=== PATIENT | female | born 1970 | race Caucasian/White ===

== ENCOUNTER → 2018-02-27 | Outpatient (CLI) | payer BC ==
--- NOTE | 2018-03-01 09:00 | MM ---
Reason for exam: screening (asymptomatic). Last mammogram was performed 4 years and 2 months ago. History: Reductions of both breasts, 2000. Took hormonal contraceptives for 13 years. Physical Findings: A clinical breast exam by your physician is recommended on an annual basis and results should be correlated with mammographic findings. MG 3D Screening Mammo W/Cad Bilateral CC and MLO view(s) were taken. Prior study comparison: January 02, 2014, bilateral digital screening mammo w/CAD. July 01, 2011, CAD bilateral diagnostic mammogram. The breast tissue is heterogeneously dense. This may lower the sensitivity of mammography. Some regional punctate calcifications in the right breast are increased but typically benign. Calcifications anterior upper outer left breast increased and can be further evaluated with magnification views. ASSESSMENT: Incomplete: need additional imaging evaluation, BI-RAD 0 RECOMMENDATION: Special view mammogram of the left breast. [facility] will attempt to contact patient to return for supplemental views. FREDA
== END ==
LOC: RADMAMWWP 15:18
PROVIDERS: ATTEND Obstetrics & Gynecology
DX: Z12.31 Encounter for screening mammogram for malignant neoplasm of breast (principal)
CPT/HCPCS: 77063; 77067

== ENCOUNTER → 2018-03-09 | Outpatient (CLI) | payer BC ==
--- NOTE | 2018-03-10 08:11 | MM ---
Reason for exam: additional evaluation requested from abnormal screening. Last mammogram was performed less than 1 month ago. History: Reductions of both breasts, 2000. Took hormonal contraceptives for 13 years. Physical Findings: Nurse did not find any significant physical abnormalities on exam. MG 3D Work Up W/Cad LT CC with magnification, ML with magnification, and ML view(s) were taken of the left breast. Prior study comparison: February 27, 2018, bilateral MG 3d screening mammo w/cad. January 02, 2014, bilateral digital screening mammo w/CAD. The breast tissue is heterogeneously dense. This may lower the sensitivity of mammography. Finding: There are typically benign punctate, diffuse/scattered, regional calcifications in the left breast. No suspicious clusters. No significant changes in finding since January 02, 2014. These results were verbally communicated with the patient and result sheet given to the patient on 03/09/18. ASSESSMENT: Benign, BI-RAD 2 RECOMMENDATION: Return to routine screening mammogram schedule for both breasts.
== END | disposition home or self-care (01) ==
LOC: RADMAMWWP 15:37
PROVIDERS: ATTEND Obstetrics & Gynecology
DX: R92.8 Other abnormal and inconclusive findings on diagnostic imaging of breast (principal)
CPT/HCPCS: 77061; 77065

== ENCOUNTER → 2018-09-27 | Outpatient (CLI) | payer BC | END | disposition home or self-care (01) | LOC: LABWHC1 15:37 | PROVIDERS: ATTEND Internal Medicine Infectious Disease | DX: M06.9 Rheumatoid arthritis, unspecified (principal) | CPT/HCPCS: 36415; 86480 ==

== ENCOUNTER → 2019-06-13 | Outpatient (CLI) | payer BC ==
--- NOTE | 2019-06-14 13:48 | MM ---
Reason for exam: screening (asymptomatic). Last mammogram was performed 1 year and 3 months ago. History: Reductions of both breasts, 2000. Took hormonal contraceptives for 13 years. Physical Findings: A clinical breast exam by your physician is recommended on an annual basis and results should be correlated with mammographic findings. MG 3D Screening Mammo W/Cad Bilateral CC and MLO view(s) were taken. Prior study comparison: March 09, 2018, left breast MG 3d work up w/cad LT. February 27, 2018, bilateral MG 3d screening mammo w/cad. The breast tissue is heterogeneously dense. This may lower the sensitivity of mammography. There is an 8mm right upper outer quadrant mass containing calcifications located 3-4cm from nipple. Partially obscured rounded left upper asymmetry with calcifications at far posterior depth over the pectoralis. ASSESSMENT: Incomplete: need additional imaging evaluation, BI-RAD 0 RECOMMENDATION: Special view mammogram of the left breast. Ultrasound of the right breast. [facility] will attempt to contact patient to return for supplemental views and ultrasound.
== END | disposition home or self-care (01) ==
LOC: RADMAMWWP 13:13
PROVIDERS: ATTEND Obstetrics & Gynecology
DX: Z12.31 Encounter for screening mammogram for malignant neoplasm of breast (principal)
CPT/HCPCS: 77063; 77067

== ENCOUNTER → 2019-06-28 | Outpatient (CLI) | payer BC ==
--- NOTE | 2019-06-29 08:42 | MM ---
Reason for exam: additional evaluation requested from abnormal screening. Last mammogram was performed less than 1 month ago. History: Reductions of both breasts, 2000. Took hormonal contraceptives for 13 years. Physical Findings: Nurse did not find any significant physical abnormalities on exam. MG Work Up Mamm w CAD LT XCCL, ML, and spot compression MLO view(s) were taken of the left breast. Prior study comparison: June 13, 2019, bilateral MG 3d screening mammo w/cad. March 09, 2018, left breast MG 3d work up w/cad LT. The breast tissue is heterogeneously dense. This may lower the sensitivity of mammography. Left focal asymmetry of upper outer quadrant at posterior depth persists, this appears similar to 2014 as do the calcifications, precautionary ultrasound. These results were verbally communicated with the patient and result sheet given to the patient on 06/28/19. ASSESSMENT: Incomplete: need additional imaging evaluation, BI-RAD 0 RECOMMENDATION: Ultrasound of the left breast. (upper outer quadrant)
--- NOTE | 2019-07-03 13:28 | USB ---
Reason for exam: additional evaluation requested from abnormal screening. History: Reductions of both breasts, 1999. Took hormonal contraceptives for 13 years. US Breast Limited RT Right limited breast ultrasound including focal area of concern, retroareolar and axilla demonstrates a 0.7 x 0.5 x 0.7cm mixed lesion at 9 o'clock, 4cm from nipple, peripheral vascular flow, solid, biopsy recommended and a 0.5 x 0.3 x 0.4cm mixed lesion at 10 o'clock. Left limited breast ultrasound including focal area of concern, retroareolar and axilla demonstrates a 0.7 x 0.3 x 0.6cm mixed lesion at 12 o'clock, a 0.5 x 0.6 x 0.3cm mixed lesion at 1 o'clock possibly cystic and complicated, biopsy recommended post pathology results and a 0.3 x 0.2 x 0.3cm mixed lesion too small to characterize at 5 o'clock, solid shadowing, biopsy recommended, assess correlation with mammographic findings after biopsy. These results were verbally communicated with the patient on 07/03/19. ASSESSMENT: Suspicious, BI-RAD 4 RECOMMENDATION: Ultrasound core biopsy of both breasts. Called Dr. May with mammographic findings and has scheduled an appointment for the patient for 07/06/19 at 2:[address] Sampson. Biopsy scheduled for 07/12/19 at 12:20. PRELIMINARY REPORT CALLED AND FAXED TO DR. SAMPSON ON 07/03/19.
== END | disposition home or self-care (01) ==
LOC: RADMAMWWP 14:53
PROVIDERS: ATTEND Obstetrics & Gynecology
DX: R92.8 Other abnormal and inconclusive findings on diagnostic imaging of breast (principal)
CPT/HCPCS: 77065

== ENCOUNTER → 2019-07-06 | Outpatient (CLI) | payer BC ==
[2019-07-06 14:42] VITALS: BP 184/111; PULSE 89; RESP 18; TEMP 98.1; BMI 28.2
--- NOTE | 2019-07-06 15:05 | P.GSHP ---
History of Present Illness H&P Date: 07/06/19 Chief Complaint: abnormal mammogram and ultrasound Mary Ann is a 49-year-old white female who had [place] [id number]. This was a bilateral 3-D mammogram after which it was recommended that she undergo a special view of the left breast and ultrasound of the right breast. The special view of the left breast was performed on 06/28/2019. This revealed left focal asymmetry in the upper outer quadrant which appeared similar to 2014. Precautionary ultrasound was recommended. Ultrasound was done of both breasts. In the right breast there is a 0.7 x 0.7 cm mixed lesion at 9:00 and a 0.5 x 0.4 mixed lesion at 10:00 in the left breast was a 0.7 mixed lesion at 12:00 and a 0.5 mixed lesion at 1:00 and a 0.3 cm mixed lesion too small to characterize at 5:00 the recommendation was ultrasound core biopsy of both breasts. Patient is status post bilateral reduction mammoplasty. The patient does not drink caffeinated beverages. She smoked but stopped 2 years ago and then beginning Vaping. However approximately 6 months ago she went to no nicotine. She eats chocolate once or twice a week. Family History: mother: thyroid cancer father: thyroid cancer Hormonal History: menarche: 13 , 1 micarrage, breast fed:no, first at 20 periods: ablation done BCP: 10 years hormones: none Surgical history: 1.thyroid resection entire 2. breast reduction 3. nose 4. 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 HTN 3. Rheumatoid Arthritis takes orencia Social History: smoke: none stopped 2 years ago, smoked 1pack/2 days, 30 years alcohol: occasional drugs: none - Constitutional Constitutional: Denies chills, Denies fever - EENT Eyes: denies blurred vision, denies pain Ears: deny: decreased hearing, tinnitus Ears, nose, mouth and throat: Denies headache, Denies sore throat - Breasts Breasts: bilateral: as per HPI - Cardiovascular Cardiovascular: Reports high blood pressure - Respiratory Respiratory: Denies cough, Denies 7 - Gastrointestinal Comment: IBS Gastrointestinal: Reports diarrhea, Denies abdominal pain, Denies nausea, Denies vomiting - Genitourinary (Female) Genitourinary: Denies dysuria, Denies hematuria - Menstruation Menstruation: Reports period light - Musculoskeletal Comment: arthritis - Integumentary Integumentary: Denies pruritus, Denies rash - Neurological Neurological: Denies numbness, Denies weakness - Psychiatric Psychiatric: Reports anxiety, Reports depression - Endocrine Endocrine: Denies fatigue, Denies weight change - Hematologic/Lymphatic Comment: Factor V and factor II abnormality - Allergic/Immunologic Allergic/Immunologic: Reports seasonal allergies Past Medical History Past Medical History: Blood Disorder, Hypertension, Rheumatoid Arthritis (RA), Thyroid Disorder Additional Past Medical History / Comment(s): IBS, 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 Sinus infection. History of Any Multi-Drug Resistant Organisms: None Reported Past Surgical History: Breast Surgery, Orthopedic Surgery Additional Past Surgical History / Comment(s): nasal surgery, cervical surgery- LEEP X 2, cone bx Past Anesthesia/Blood Transfusion Reactions: Previous Problems w/ Anesthesia Additional Past Anesthesia/Blood Transfusion Reaction / Comment(s): after nasal surgery had high BP post op and severe pain- may have had bleeding problem post op but not sure. anesthesia record from nasal surgery done 06/11/2012 added to chart Past Psychological History: Anxiety Smoking Status: Never smoker Past Alcohol Use History: Occasional Past Drug Use History: None Reported - Past Family History Mother Family Medical History: Cancer Father Family Medical History: Cancer Brother(s) Family Medical History: Myocardial Infarction ([place]) Medications and Allergies Home Medications Medication Instructions Recorded Confirmed Type ALPRAZolam [Xanax] 0.25 mg PO DAILY PRN 03/20/14 07/06/19 History Abatacept [Orencia] 0 mg IV Q30D 03/20/14 07/06/19 History Lisinopril [Zestril] 10 mg PO BID 03/20/14 07/06/19 History amLODIPine BESYLATE [Norvasc] 5 mg PO 1600,2200 03/20/14 07/06/19 History diphenhydrAMINE [Benadryl] 25 mg PO HS 03/20/14 07/06/19 History Levothyroxine Sodium [Synthroid] 100 mcg PO DAILY 12/22/15 07/06/19 History traZODone HCL 50 mg PO HS 07/19/17 07/06/19 History Calcium Carbonate/Vitamin D3 1 tab PO DAILY 07/06/19 07/06/19 History [Calcium 500-Vit D3 600 Tablet] Docusate [Colace] 100 mg PO DAILY 07/06/19 07/06/19 History Fluticasone Propionate [Flonase 1 spray EA NOSTRIL DAILY PRN 07/06/19 07/06/19 History Allergy Relief] Loperamide [Imodium] 2 mg PO DAILY PRN 07/06/19 07/06/19 History sulfaSALAzine [Azulfidine] 500 mg PO BID 07/06/19 07/06/19 History Allergies Allergy/AdvReac Type Severity Reaction Status Date / Time hydralazine [Hydralazine] Allergy Severe Rapid Verified 07/06/19 14:31 Heart Rate Surgical - Exam Vital Signs Temp Pulse Resp BP Pulse Ox 98.1 F 89 18 184/111 100 07/06/19 14:38 07/06/19 14:38 07/06/19 14:38 07/06/19 14:38 07/06/19 14:38 BMI 28.2 - General well developed, well nourished, no distress - Eyes normal ocular movement - ENT no hearing loss, no congestion - Neck no masses, trachea midline - Respiratory normal respiratory effort - Cardiovascular Rhythm: regular Heart Sounds: normal: S1, S2 - Abdomen Abdomen: soft, non tender, no guarding, no rigid, no rebound - Integumentary normal turgor - Neurologic no disoriented, no combative - Musculoskeletal normal gait, normal posture - Psychiatric oriented to time, oriented to person, oriented to place, speech is normal, memory intact Breast exam: Right breast: Scar from breast reduction, multiple positional exam no dominant masses or nodules of concern, fibrocystic change Right axilla: No adenopathy of concern Left breast: Scars from breast reduction, multiple positional exam no dominant masses or nodules of concern, fibrocystic changes Left axilla: No adenopathy of concern Results Mammogram and ultrasound reports reviewed Assessment and Plan Assessment: Impression: 1. Abnormal mammogram and ultrasound of the breast, bilateral breast ultrasound core biopsy recommended 2. Fibrocystic breast changes 3. Family history of thyroid cancer 4. Factor II and factor V abnormality 6. Irritable bowel syndrome 7. Hypertension 8. Rheumatoid arthritis 9. Former smoker Plan: 1. Bilateral ultrasound-guided core biopsy 2. Follow-up after biopsy 3. Medical management medical conditions Cc: Dr. May, Dr. Antonio
== END ==
LOC: WWCWWP 13:55
PROVIDERS: ATTEND Surgery
DX: Z53.9 Procedure and treatment not carried out, unspecified reason (principal)

== ENCOUNTER → 2019-07-12 | Day surgery (SDC) | payer BC ==
[2019-07-12 11:39] VITALS: RESP 16; BMI 28.2
[2019-07-12 13:39] VITALS: BP 149/65; PULSE 69; TEMP 98.1
--- NOTE | 2019-07-12 14:56 | USB ---
EXAMINATION TYPE: US biopsy breast VAD RT, US biopsy breast VAD LT, MG diagnostic mammo BI wo CAD DATE OF EXAM: 07/12/2019 CLINICAL HISTORY: R92.Abnormal ultrasoundAbnormal Mammogram. TECHNIQUE: Ultrasound guided core biopsy of bilateral breast with clip placement and follow-up diagnostic bilateral breast mammogram. COMPARISON: Prior bilateral breast ultrasound June 28, 2019 FINDINGS: The procedure of ultrasound guided core biopsy was explained to the patient. Benefits, alternatives, and risks were discussed. An informed consent was then obtained. The patient was placed in supine positioning for imaging and for the procedure. Preprocedure ultrasound redemonstrates 7 mm lobulated hypoechoic lesion 9:00 position Zone-A right breast and tiny 2 to 3 mm hypoechoic vascular lesion 5:00 position zone C deep in the left breast. Left breast lesion is first performed. The overlying skin was prepped and draped in usual sterile fashion. Lidocaine was used as anesthetic into the skin and subcutaneous tissue. Lidocaine with epinephrine is used as anesthetic into the deeper tissue in the bilateral breasts. Under ultrasound guidance, a vacuum assisted biopsy gun device was used to obtain 3 core samples on the left and 4 core samples on the right. Following this, a biopsy clip was left in each lesion. The patient tolerated the procedure well without any immediate complication. The patient was kept in the radiology department for short stay after the procedure and then discharged home in stable condition. Post procedure mammogram shows successful deployment of right breast clip. Left breast clip not clearly identified felt to be due to marked posterior or deep location. Right breast clip satisfactory relative to the area of concern on original mammogram IMPRESSION: Successful, uncomplicated ultrasound guided core biopsy of area of concern in the bilateral breasts, full pathology results to follow. Low index of suspicion noted in the left breast. Intermediate index of suspicion noted in the right breast. Pathology Results: Benign A. LEFT BREAST, FIVE O'CLOCK, ULTRASOUND GUIDED CORE BIOPSY: Benign breast tissue with prominent adipose tissue and focal scar/fibrosis with histiocytes. Cannot exclude lipoma. B. RIGHT BREAST, NINE O'CLOCK, ULTRASOUND GUIDED CORE BIOPSY: Fibroadenoma and background fibrocystic changes. Recommendation Follow up mammogram of both breasts in 6 months. FREDA
== END ==
LOC: RADUSWWP 11:15
PROVIDERS: ATTEND Surgery
DX: D24.1 Benign neoplasm of right breast (principal); N60.32 Fibrosclerosis of left breast
CPT/HCPCS: 19083; 19084; 88305; 77066; A4648; J2001

== ENCOUNTER → 2019-07-20 | Outpatient (CLI) | payer BC ==
[2019-07-20 15:31] VITALS: BP 182/95; PULSE 93; RESP 18; TEMP 97.8; BMI 28.2
--- NOTE | 2019-07-20 15:48 | P.PN ---
Subjective Progress Note Date: 07/20/19 Principal diagnosis: Niecy is a 49-year-old white female status post ultrasound-guided core biopsy of both breast on . Left breast revealed benign breast tissue with prominent adipose tissue and focal scar/fibrosis. Right breast core biopsy revealed fibroadenoma and background fibrocystic changes. The patient is doing well status post procedure and both are concordant with the radiographic concerns. The patient does not have any complaints related to the procedure. Objective - Vital Signs Vital signs: Vital Signs Temp 97.8 F 07/20/19 15:28 Pulse 93 07/20/19 15:28 Resp 18 07/20/19 15:28 BP 182/95 07/20/19 15:28 Pulse Ox 98 07/20/19 15:28 Intake & Output 07/19/19 07/20/19 07/20/19 18:59 06:59 18:59 Weight 79.379 kg - Exam BMI 28.2 - Constitutional General appearance: Present: average body habitus - EENT Eyes: Present: EOMI ENT: Present: hearing grossly normal - Neck Neck: Present: normal ROM - Respiratory Respiratory: bilateral: CTA - Cardiovascular Rhythm: regular Heart sounds: normal: S1, S2 - Integumentary Integumentary Comment(s): echymosis bilateral breast at biopsy site no evidence of any infection - Musculoskeletal Musculoskeletal: Present: gait normal, strength equal bilaterally - Psychiatric Psychiatric: Present: A&O x's 3, appropriate affect, intact judgment & insight Assessment and Plan Assessment: Impression: 1. Patient is status post bilateral ultrasound core biopsy 2. Left breast core biopsy benign breast tissue, scar, fibrosis 3. Right ultrasound-guided core biopsy fibroadenoma Results of biopsy discussed with the patient and her . They understand that she will have repeat mammogram and ultrasound of both breasts in 6 months time. If she has any questions or concerns and we'll see her sooner. Cc: Dr. Harley, Dr. May
== END | disposition home or self-care (01) ==
LOC: WWCWWP 15:07
PROVIDERS: ATTEND Surgery
DX: Z53.9 Procedure and treatment not carried out, unspecified reason (principal)

== ENCOUNTER → 2020-01-14 | Outpatient (CLI) | payer BC | END | disposition home or self-care (01) | DX: R92.8 Other abnormal and inconclusive findings on diagnostic imaging of breast (principal) | CPT/HCPCS: 77066 ==

== ENCOUNTER → 2021-03-18 | Outpatient (CLI) | payer BC ==
--- NOTE | 2021-03-18 12:41 | CT ---
EXAMINATION TYPE: CT lumbar spine wo con DATE OF EXAM: 03/18/2021 COMPARISON: None HISTORY: 50-year-old female Lumbago TECHNIQUE: Contiguous axial scanning of the lumbar spine without IV contrast. Coronal and sagittal re constructions performed. CT DLP: 1024 mGycm Automated exposure control for dose reduction was used. FINDINGS: Kidneys show extra renal pelves on both sides. Vertebral body heights are preserved and alignment is maintained. Mild disc bulging lower lumbar spine. Facet arthropathy lower lumbar spine, right greater than left. No large focal disc herniation or significant spinal canal stenosis. On the left, changes result in moderate neural foraminal narrowing at L5-S1 and mild at L4-L5. On the right, changes result in mild to moderate neural foraminal narrowing at L5-S1 and mild at L4-L 5. IMPRESSION: 1. MILD DEGENERATIVE DISC DISEASE MID TO LOWER LUMBAR SPINE. NO LARGE FOCAL DISC HERNIATION OR SPINAL CANAL STENOSIS. 2. FACET ARTHROPATHY LOWER LUMBAR SPINE, RIGHT GREATER THAN LEFT. 3. CHANGES RESULT IN MODERATE LEFT NEURAL FORAMINAL STENOSIS AT L5-S1 AND MILD TO MODERATE ON THE RIG HT.
--- NOTE | 2021-03-19 11:09 | NM ---
EXAMINATION TYPE: NM bone scan whole body DATE OF EXAM: 03/18/2021 COMPARISON: NONE HISTORY: M54.4 lumbago, M54.5 low back pain, M48.062 Delayed whole-body scanning was performed following the injection of 23.6 mCi Tc 99m MDP. Images acq uired 4.5 hours post injection. FINDINGS: Degenerative uptake about the shoulders, sternoclavicular joints, thoracic and lumbar spines as well as the wrists, hands right knee, bilateral ankles and mid feet and great toes. No intense uptake to s uggest metastatic disease fracture. IMPRESSION: Degenerative uptake as noted.
== END | disposition home or self-care (01) ==
LOC: RADCTMAIN 10:57
PROVIDERS: ATTEND Neurological Surgery
DX: M51.36 Other intervertebral disc degeneration, lumbar region (principal); M47.816 Spondylosis without myelopathy or radiculopathy, lumbar region; M99.73 Connective tissue and disc stenosis of intervertebral foramina of lumbar region
CPT/HCPCS: 72131; 78306; A9503

== ENCOUNTER → 2021-04-07 | Outpatient (CLI) | payer BC ==
--- NOTE | 2021-04-07 16:01 | BD ---
EXAMINATION TYPE: Axial Bone Density DATE OF EXAM: 04/07/2021 COMPARISON: NONE CLINICAL HISTORY: Height: 5 FT 5 1/2 IN Weight: 177 FRAX RISK QUESTIONS: Alcohol (3 or more units per day): NO Family History (Parent hip fracture): NO Glucocorticoids (More than 3mos): ON AND OFF SINCE DEC (Ex: prednisone, prednisolone, methylprednisolone, dexamethasone, and hydrocortisone). History of Fracture in Adulthood: YES Secondary Osteoporosis: 1. Type 1 Diabetes: NO 2. Hyperthyroidism: REMOVED 3. Menopause before 45: NO 4. Malnutrition: NO 5. Chronic liver disease: NO Rheumatoid Arthritis: YES Current Tobacco Use: NO RISK FACTORS HISTORY OF: Surgery to Spine/Hip(right/left)/Wrist (right/left): NO Family History of Osteoporosis: NO Active: YES Diet low in dairy products/other sources of calcium: NO Postmenopausal woman: [employer] AGE 44 NO SYMPTOMS Take estrogen and/or progesterone medications: NO Lost more than 2 inches in height since high school: NO MEDICATIONS: Prednisone or other steroids: ON AND SINCE DEC 2020 Thyroid Medications:YES Which medication: LEVOTHYROXINE How Long: APPROX 10 YEARS Additional Medications: LEVOTHYROXINE, RHEUMATOID MEDS, ORENCIA, LISINOPRIL, NORVASC, TRAZODONE, BENE DRYL, XANAX, Additional History: EXAM MEASUREMENTS: Bone mineral densitometry was performed using the [employer] System. Bone mineral density as measured about the Lumbar spine is: ----- L1-L4(G/cm2): 1.356 T Score Values are as follows: ----- L2: 1.6 ----- L3: 1.3 ----- L4: 1.3 ----- L1-L4: 1.5 BASELINE Bone mineral density about the R hip (g/cm2): 0.862 Bone mineral density about the L hip (g/cm2): 0.864 T Score values are as follows: -----R Neck: -1.3 -----L Neck: -1.3 -----R Total: -0.3 -----L Total: -0.2 BASELINE IMPRESSION: Osteopenia (T Score between -2.5 and -1). There is slightly increased risk of fracture and the patient may be considered for treatment. Re-Screen 2-5 years. NOTE: T-SCORE=SD OF THE YOUNG ADULT MEAN.
== END | disposition home or self-care (01) ==
LOC: RADBDWWP 11:16
PROVIDERS: ATTEND Neurological Surgery
DX: Z13.820 Encounter for screening for osteoporosis (principal); M85.89 Other specified disorders of bone density and structure, multiple sites
CPT/HCPCS: 77080

== ENCOUNTER → 2021-07-28 | Outpatient (CLI) | payer BC ==
--- NOTE | 2021-07-28 11:12 | XR ---
EXAMINATION TYPE: XR chest 2V DATE OF EXAM: 07/28/2021 COMPARISON: NONE HISTORY: Chest pain TECHNIQUE: Frontal and lateral views of the chest are obtained. FINDINGS: There is no focal air space opacity. No evidence for pneumothorax. No pleural effusion. The cardiac silhouette size is within normal limits. The osseous structures are grossly intact. IMPRESSION: 1. No acute cardiopulmonary process.
[2021-07-28 11:17] LABS: INR 0.9 (<1.2); Partial Thromboplastin Time 24.1 sec (22.0-30.0); Prothrombin Time 10.2 sec (9.0-12.0)
[2021-07-28 16:37] LABS: Basophils # (A) 0.02 X 10*3/uL (0.00-0.10); Basophils % (A) 0.4 %; Eosinophils # (A) 0.02 X 10*3/uL (0.04-0.35); Eosinophils % (A) 0.4 %; HCT 40.6 % (37.2-46.3); HGB 13.6 g/dL (12.0-15.0); Lymphocytes # (A) 2.25 X 10*3/uL (0.90-5.00); Lymphocytes % (A) 39.5 %; MCH 31.4 pg (27.0-32.0); MCHC 33.5 g/dL (32.0-37.0); MCV 93.8 fL (80.0-97.0); Mean Platelet Volume 9.8 fL (9.5-12.2); Monocytes # (A) 0.33 X 10*3/uL (0.20-1.00); Monocytes % (A) 5.8 %; Neutrophils # (A) 3.07 X 10*3/uL (1.80-7.70); Neutrophils % (A) 53.7 %; Platelet Count 238 X 10*3/uL (140-440); RBC 4.33 X 10*6/uL (4.10-5.20); RDW 11.9 % (11.5-14.5)
[2021-07-29 20:21] LABS: African American GFR (CKD) 97.1 (60.0-200.0); Albumin 4.9 g/dL (3.8-4.9); Albumin/Globulin Ratio 2.13 (1.60-3.17); BUN/Creat Ratio 16.4 Ratio (12.00-20.00); Blood Urea Nitrogen 13.4 mg/dL (9.0-27.0); Calcium 9.6 mg/dL (8.7-10.3); Globulin 2.3 g/dL (1.6-3.3); Non-African American GFR(CKD) 83.8 (60.0-200.0); Potassium 3.7 mmol/L (3.5-5.5); Total Bilirubin 0.3 mg/dL (0.30-1.20); Total Protein 7.2 g/dL (6.2-8.2)
== END | disposition home or self-care (01) ==
LOC: LABWHC1 08:12
PROVIDERS: ATTEND Neurological Surgery
DX: M54.5 Low back pain (principal); R07.9 Chest pain, unspecified; R94.7 Abnormal results of other endocrine function studies
CPT/HCPCS: 36415; 71046; 80053; 85025; 85610; 85730; 86850; 86900; 86901; 87070; 87086; 93005

== ENCOUNTER → 2021-08-17 | Outpatient (CLI) | payer BC | END | disposition home or self-care (01) | LOC: LABWHC1 10:48 | PROVIDERS: ATTEND Neurological Surgery | DX: Z20.822 Contact with and (suspected) exposure to COVID-19 (principal); M54.50 Low back pain, unspecified | CPT/HCPCS: U0003; U0005 ==

== ENCOUNTER → 2021-08-21 | Outpatient (CLI) | payer BC ==
[2021-08-21 10:38] LABS: Appearance,Urine Clear (Clear); Bacteria,Urine Occasional /hpf; Bilirubin,Urine Negative (Negative); Blood,Urine Trace (Negative); Color,Urine Yellow; Glucose,Urine (UA) Negative (Negative); Ketones,Urine Negative (Negative); Leukocyte Esterase,Urine Negative (Negative); Mucus,Urine Rare /hpf; Nitrite,Urine Negative (Negative); Protein,Urine Negative (Negative); RBC,Urine 2 /hpf (0-5); Specific Gravity,Urine 1.013 (1.001-1.035); Squamous Epithelial Cell,Urine <1 /hpf (0-4); Urobilinogen,Urine <2.0 mg/dL (<2.0); WBC,Urine 1 /hpf (0-5)
[2021-08-21 10:43] LABS: Partial Thromboplastin Time 24.2 sec (22.0-30.0); Prothrombin Time 10.3 sec (9.0-12.0)
[2021-08-21 16:20] LABS: Basophils # (A) 0.01 X 10*3/uL (0.00-0.10); Basophils % (A) 0.2 %; Eosinophils # (A) 0.03 X 10*3/uL (0.04-0.35); Eosinophils % (A) 0.6 %; HCT 40.4 % (37.2-46.3); HGB 13.6 g/dL (12.0-15.0); Lymphocytes # (A) 1.64 X 10*3/uL (0.90-5.00); MCHC 33.7 g/dL (32.0-37.0); MCV 95.1 fL (80.0-97.0); Mean Platelet Volume 9.7 fL (9.5-12.2); Monocytes # (A) 0.28 X 10*3/uL (0.20-1.00); Monocytes % (A) 5.5 %; Neutrophils # (A) 3.16 X 10*3/uL (1.80-7.70); Neutrophils % (A) 61.5 %; Platelet Count 217 X 10*3/uL (140-440); RBC 4.25 X 10*6/uL (4.10-5.20); RDW 11.7 % (11.5-14.5); WBC 5.13 X 10*3/uL (4.50-10.00)
[2021-08-21 17:40] LABS: African American GFR (CKD) 95.6 (60.0-200.0); Albumin 4.6 g/dL (3.8-4.9); Albumin/Globulin Ratio 2.15 (1.60-3.17); Anion Gap 12.9 mmol/L (4.00-12.00); BUN/Creat Ratio 16.18 Ratio (12.00-20.00); Blood Urea Nitrogen 13.4 mg/dL (9.0-27.0); Calcium 9.2 mg/dL (8.7-10.3); Carbon Dioxide 23.7 mmol/L (21.6-31.8); Globulin 2.1 g/dL (1.6-3.3); Non-African American GFR(CKD) 82.5 (60.0-200.0); Potassium 3.7 mmol/L (3.5-5.5); Total Bilirubin 0.4 mg/dL (0.30-1.20); Total Protein 6.8 g/dL (6.2-8.2)
== END | disposition home or self-care (01) ==
LOC: LABWHC1 09:18
PROVIDERS: ATTEND Neurological Surgery
DX: Z20.822 Contact with and (suspected) exposure to COVID-19 (principal); M54.50 Low back pain, unspecified
CPT/HCPCS: 86900; 86901; 80053; 82550; 85025; 85610; 85730; 86850; 81001; 87070; 36415; U0003; U0005

== ENCOUNTER → 2021-09-28 | Outpatient (CLI) | payer BC ==
--- NOTE | 2021-09-28 10:30 | US ---
EXAMINATION TYPE: US liver DATE OF EXAM: 09/28/2021 COMPARISON: NONE CLINICAL HISTORY: K76.8OTHER SPECIFIED DISEASES OF LIVER. Patient states liver lesion seen on MRI at outside facility. EXAM MEASUREMENTS: Liver Length: 14.3 cm Gallbladder Wall: 0.2 cm CBD: 0.4 cm Right Kidney: 12.2 x 5.1 x 5.0 cm Pancreas: wnl Liver: Anechoic area seen in left lobe 1.1 x 1.2 x 0.6 cm Gallbladder: No stones seen Evidence for sonographic Seo's sign: No CBD: wnl Right Kidney: No hydronephrosis or masses seen IMPRESSION: Hypoechoic area left hepatic lobe may reflect an area of focal fatty sparing. Consider CT correlation .
== END | disposition home or self-care (01) ==
LOC: RADUSWWP 09:32
PROVIDERS: ATTEND Family Medicine
DX: K76.89 Other specified diseases of liver (principal)
CPT/HCPCS: 76705

== ENCOUNTER → 2021-10-19 | Outpatient (CLI) | payer BC ==
--- NOTE | 2021-10-20 07:30 | CT ---
EXAMINATION TYPE: CT abdomen wo/w con DATE OF EXAM: 10/19/2021 COMPARISON: Ultrasound liver September 28, 2021. CT lumbar spine March 18, 2021. HISTORY: Liver lesions, disease unspecified CT DLP: 1396 mGycm Automated exposure control for dose reduction was used. TECHNIQUE: Helical acquisition of images was performed from the lung bases through the top of iliac crest to include entire abdomen. CONTRAST: Performed CT abdomen with Oral Contrast and with IV Contrast, patient injected with 100 mL of Isovue 300. FINDINGS: LUNG BASES: No significant abnormality is appreciated. LIVER/GB: Corresponding to area of concern on ultrasound there is oval anterior well-defined 1.3 x 0. 9 cm lesion consistent with simple benign thin-walled cyst anterior in the left hepatic lobe series 6 image 11. There are relatively additional 5 scattered subcentimeter hypodense lesions that are too s mall to further characterize but presumed benign on CT that are not clearly seen on ultrasound. PANCREAS: No significant abnormality is seen. SPLEEN: Incidental anterior inferior 1.0 cm splenule axial image 27 series 3. ADRENALS: No significant abnormality is seen. KIDNEYS: No renal calculi on noncontrast CT. Symmetric uptake and excretion without hydronephrosis se en bilaterally. BOWEL: Normal-appearing appendix from cecum in the right mid abdomen. Oral contrast does not reach l evel of terminal ileum making evaluation of bowel slightly suboptimal. No suspicious dilatation is pr esent. LYMPH NODES: Few prominent but subcentimeter retroperitoneal lymph nodes. No greater than 1 cm abdom inal adenopathy. OSSEOUS STRUCTURES: Postsurgical change posterior L4-L5 spinous process level now present causing st reak artifact. OTHER: Mild/moderate calcified plaque of the aorta extends into branch vessels IMPRESSION: Simple appearing 1.3 cm thin-walled cyst anterior left hepatic lobe. No worrisome intrahe patic mass or intrahepatic ductal dilatation.
== END | disposition home or self-care (01) ==
LOC: RADCTMAIN 14:25
PROVIDERS: ATTEND Family Medicine
DX: K76.89 Other specified diseases of liver (principal)
CPT/HCPCS: 74170; Q9967

== ENCOUNTER → 2022-07-21 | Outpatient (CLI) | payer BC ==
--- NOTE | 2022-07-21 10:14 | MM ---
Reason for Exam: Additional evaluation requested from prior study. Last mammogram was performed 2 year(s) and 6 month(s) ago. Patient History: Menarche at age 13. First Full-Term at age 20. Patient used Hormonal Contraceptives for 13 years. 2000, Bilateral Reduction. 07/12/2019, Benign Core Biopsy on the left side. 07/12/2019, Benign Core Biopsy on the right side. Last menstrual period: Risk Values: Daisy 5 year model risk: 1.1%. NCI Lifetime model risk: 9.5%. Prior Study Comparison: 06/28/2019 Left Diagnostic Mammogram, [facility]. 07/12/2019 Bilateral Diagnostic Mammogram, [facility]. 01/14/2020 Bilateral Diagnostic Mammogram, [facility]. Tissue Density: The breast tissue is heterogeneously dense. This may lower the sensitivity of mammography. Findings: Analyzed By CAD. Stable benign-appearing calcifications bilaterally. Nodular densities seen bilaterally also chronic in appearance. Overall Assessment: Benign, BI-RAD 2 Management: Screening Mammogram of both breasts in 1 year. A clinical breast exam by your physician is recommended on an annual basis and results should be correlated with mammographic findings. This exam should not preclude additional follow-up of suspicious palpable abnormalities. Results were given to the patient verbally at the time of exam. Electronically signed and approved by: Juan French M.D. Radiologis
== END | disposition home or self-care (01) ==
LOC: RADMAMWWP 09:35
PROVIDERS: ATTEND Obstetrics & Gynecology
DX: R92.8 Other abnormal and inconclusive findings on diagnostic imaging of breast (principal); Z98.890 Other specified postprocedural states
CPT/HCPCS: 77066

== ENCOUNTER → 2023-05-05 | Outpatient (CLI) | payer BC ==
--- NOTE | 2023-05-05 20:16 | MR ---
EXAMINATION TYPE: MR lumbar spine wo con DATE OF EXAM: 05/05/2023 COMPARISON: CT abdomen 10/19/2021 HISTORY: Low back pain that radiates into both hips and down legs CONTRAST: 0 mL intravenous . TECHNIQUE: Multiplanar, multisequence images of the lumbar spine were acquired. FINDINGS: L5-S1: No significant disc bulge or disc herniation. No spinal canal stenosis. No foraminal stenosi s. L4-L5: No significant disc bulge or disc herniation. No spinal canal stenosis. No foraminal stenosi s. Susceptibility artifact is present in the spinous process regions and paraspinal region at the L5 -S1 level compatible with the patient's surgical history L3-L4: Mild disc bulge has anterior thecal sac flattening without spinal canal stenosis. No foramin al stenosis. . L2-L3: No significant disc bulge or disc herniation. No spinal canal stenosis. No foraminal stenosi s. L1-L2: No significant disc bulge or disc herniation. No spinal canal stenosis. No foraminal stenosi s. T12-L1: No significant disc bulge or disc herniation. No spinal canal stenosis. No foraminal stenos is. IMPRESSION: 1. Mild disc bulging L4-5 with anterior thecal sac flattening. No stenosis is present. 2. Postsurgical susceptibility changes at the L4-5 spinous process region limiting evaluation in this region.
== END | disposition home or self-care (01) ==
LOC: RADMRIMAIN 07:49
PROVIDERS: ATTEND Neurological Surgery
DX: M51.16 Intervertebral disc disorders with radiculopathy, lumbar region (principal)
CPT/HCPCS: 72148

== ENCOUNTER → 2024-02-17 | Outpatient (CLI) | payer BC ==
--- NOTE | 2024-02-17 11:56 | FL ---
Exam Date: 02/17/2024 11:12 AM. Modified barium swallow for dysphagia. Consistencies administered: Various consistency of barium. Fluoro time: 41 seconds No images were sent to PACS. Please see speech pathology report. DAP: Not reported mGym2 Gycm2
== END | disposition home or self-care (01) ==
LOC: RADFLMAIN 10:49
PROVIDERS: ATTEND Family Medicine
DX: R13.12 Dysphagia, oropharyngeal phase (principal)
CPT/HCPCS: 74230

== ENCOUNTER 2024-04-06 12:13 | Day surgery (SDC) | payer BC ==
[2024-04-05 09:48] VITALS: BMI 32.8
[~2024-04-06 12:13] MED LIST: LIDOCAINE 1% (10MG/ML) FOR IV START INTRADERMA PRN; MIDAZOLAM 2 MG/2 ML VIAL IV PRN
[2024-04-06 14:12] VITALS: TEMP 97.9
[2024-04-06 14:24] LABS: Glucose,Whole Blood 84 mg/dL (70-110)
[2024-04-06] MEDS: IV FLUID CONTINUATION 1,000 ML IV ONE (14:24)
[2024-04-06] MEDS: LACTATED RINGERS 1,000 ML IV SCH (14:26)
[2024-04-06] MEDS ORDERED: PROPOFOL 10 MG/ML 20 ML VIAL IV ONE (14:43)
[2024-04-06] MEDS ORDERED: LIDOCAINE 1% INJ 10MG/ML (20 ML MDV) ONE (14:43)
--- NOTE | 2024-04-06 15:00 | P.PCN ---
Date of Procedure: 04/06/24 Procedure(s) Performed: BRIEF HISTORY: Patient is a 53-year-old pleasant white female scheduled for an elective colonoscopy as a part of screening for colon cancer and family history of colon cancer. Maternal grandmother and maternal uncle diagnosed with colon cancer in the 60s and 70s suspect PROCEDURE PERFORMED: Colonoscopy. PREOPERATIVE DIAGNOSIS: Screening for colon cancer and family history of colon cancer. IV sedation per Anesthesia. PROCEDURE: After informed consent was obtained, the patient, was brought into the endoscopy unit. IV sedation was administered by Anesthesia under continuous monitoring. Digital rectal examination was normal. Initially the Olympus CF-160 flexible video colonoscope was then inserted in the rectum, gradually advanced into the cecum without any difficulty. Careful examination was performed as the scope was gradually being withdrawn. Ileocecal valve and the appendiceal orifice were visualized and appeared normal. Prep was excellent. Mucosa of the cecum, ascending colon, transverse colon, descending colon, sigmoid colon, and rectum appeared normal. Scattered sigmoid diverticulosis. Retroflexion was performed in the rectum and no lesions were seen. The patient tolerated the procedure well. IMPRESSION: Normal-appearing colon from rectum to cecum with no evidence of colorectal neoplasia. Scattered sigmoid diverticulosis. RECOMMENDATIONS: Findings of this examination were discussed with the patient as well as her family. She was advised to have repeat screening colonoscopy in 5 years because of a family history of colon cancer.
[2024-04-06 15:06] VITALS: PULSE 69
[2024-04-06 15:27] VITALS: BP 130/86; RESP 16
== END 2024-04-06 15:32 | disposition home or self-care (01) ==
LOC: ORWHC2ENDO 12:13
PROVIDERS: ATTEND Internal Medicine Gastroenterology
DX: Z12.11 Encounter for screening for malignant neoplasm of colon (principal); K57.30 Diverticulosis of large intestine without perforation or abscess without bleeding; I10 Essential (primary) hypertension; E03.9 Hypothyroidism, unspecified; M06.9 Rheumatoid arthritis, unspecified; Z87.891 Personal history of nicotine dependence; Z79.890 Hormone replacement therapy; Z79.899 Other long term (current) drug therapy; Z80.0 Family history of malignant neoplasm of digestive organs; Z98.890 Other specified postprocedural states
CPT/HCPCS: 81025; 45378; J2001; J2704

== ENCOUNTER → 2024-08-07 | Outpatient (CLI) | payer BC ==
--- NOTE | 2024-08-07 13:30 | MM ---
Reason for Exam: Clinical finding. Last mammogram was performed 2 year(s) and 1 month(s) ago. Patient History: Menarche at age 13. First Full-Term at age 20. Patient used Hormonal Contraceptives for 13 years. 1999, Bilateral Reduction. 07/12/2019, Benign Core Biopsy on the left side. 07/12/2019, Benign Core Biopsy on the right side. Risk Values: Daisy 5 year model risk: 1.2%. NCI Lifetime model risk: 9.2%. Tissue Density: There are scattered areas of fibroglandular density. Findings: Analyzed By CAD. Stable scattered benign-appearing calcifications. No evidence for mass or distortion. Overall Assessment: Benign, BI-RAD 2 Management: Screening Mammogram of both breasts in 1 year. . Results were given to the patient verbally at the time of exam. Patient should continue monthly self-breast exams. A clinical breast exam by your physician is recommended on an annual basis. This exam should not preclude additional follow-up of suspicious palpable abnormalities. Note on Daisy scores and lifetime risk: 1. A Daisy score greater than 3% is considered moderate risk. If this is the case, consider specialist referral to assess eligibility for a risk reducing agent. 2. If overall lifetime risk for the development of breast cancer is 20% or higher, the patient may qualify for future screening with alternating mammogram and breast MRI. [facility], , 08/07/2024 1:25 PM. Electronically signed and approved by: Juan French M.D. Radiologis
== END | disposition home or self-care (01) ==
LOC: RADMAMWWP 13:03
PROVIDERS: ATTEND Obstetrics & Gynecology
DX: R92.8 Other abnormal and inconclusive findings on diagnostic imaging of breast
CPT/HCPCS: 77062; 77066